=== PATIENT | female | born 2005 ===

== ENCOUNTER 2025-03-28 06:45 | Emergency (ER) | payer OTHER, SELFPAY ==
[2025-03-28 06:59] VITALS: BP 104/62; BP 116/75; PULSE 112; PULSE 93; RESP 17; TEMP 36.8; O2SAT 98; O2SAT 99; BMI 31.4
[2025-03-28 07:02] VITALS: BP 116/75; PULSE 93; RESP 17; TEMP 36.8; O2SAT 98
--- OUTSIDE RECORDS SUMMARY | 2025-03-28 07:02 | XMS_ITS | Clinical Summary ---
Author Organization 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 Name Role Phone Unavailable Primary Care Provider Unavailabl e Social History Tobacco Use Types Packs/Day Years Used Date Smoking Tobacco: Never Assessed Comments Unknown Sex and Gender Information Value Date Recorded Sex Assigned at Not on file Legal Sex Female 10:21 AM EST Gender Identity Not on file Sexual Orientation Not on file Plan of Treatment Health Maintenance Due Date Last Done Comments Gonorrhea/Chlamydia Screening 2004 Varicella Vaccines (1 of 2 - 13+ 2-dose series) 2017 HPV Vaccines (1 - 3-dose series) 07/31/2019 Meningococcal B Vaccine (1 o f 2 - Standard) 2020 DTaP,Tdap,and Td Vaccines (1 - Tdap) 07/31/2023 Hepatitis B Vaccines (1 of 3 - 19+ 3-dose series) 07/31/2023 Depression Screening 04/30/2024 COVID-19 Vaccine (1 - 2024-2 6 season) 2024 Influenza Vaccine (#1) 2024 RSV Immunization Adult Patie nts (1 - 1-dose 75+ series) 07/31/2079 HIB Vaccines Aged Out No longer eligi ble based on patient's age to complete this topic Hepatitis A Vaccines Aged Out No long er eligible based on patient's age to complete this topic IPV Vaccines Aged Out No longer eligi ble based on patient's age to complete this topic MMR Vaccines Aged Out No longer eligi ble based on patient's age to complete this topic Meningococcal ACWY Vaccine Aged Out N o longer eligible based on patient's age to complete this topic Pneumococcal Vaccine: Pediat rics (0 to 5 Years) and At-Risk Patients (6 to 49 Years) Aged Out No longer eligible b ased on patient's age to complete this topic RSV Immunization Patients Un angie 20 months Aged Out No longer eligible b ased on patient's age to complete this topic
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
[2025-03-28 07:42] VITALS: BP 116/75; PULSE 93; RESP 17; TEMP 36.8; O2SAT 98
== END 2025-03-28 07:43 | disposition left against medical advice (07) ==
PROVIDERS: Emergency Provider Emergency Medicine
DX: S09.93XA Unspecified injury of face, initial encounter (principal); Y04.2XXA Assault by strike against or bumped into by another person, initial encounter; Y93.9 Activity, unspecified; Y92.9 Unspecified place or not applicable; Y99.8 Other external cause status
CPT/HCPCS: 99282; 99284